=== PATIENT | male | born 1990 | race African-American/Black ===

== ENCOUNTER 2022-02-22 10:31 | Emergency (ER) | payer SELFPAY ==
[2022-02-22] MEDS ORDERED: Ibuprofen 200 MG TAB ONE (11:01)
[2022-02-22] MEDS ORDERED: Acetaminophen 500 MG TAB ONE (11:02)
== END 2022-02-22 12:25 | disposition home or self-care (01) ==
LOC: CSHERS 10:31
DX: R51.9 Headache, unspecified (principal); I48.91 Unspecified atrial fibrillation
CPT/HCPCS: 99283

== ENCOUNTER 2022-03-01 09:07 | Emergency (ER) | payer SELFPAY ==
[2022-03-01] MEDS ORDERED: Iopamidol 370 76% 100 ML VIAL ONE (09:23)
[2022-03-01] MEDS ORDERED: Aspirin Chewable 81 MG TAB ONE (09:31)
[2022-03-01] MEDS ORDERED: Nitroglycerin 2% Ointment 1 INCH/1 GM Packet ONE (09:32)
[2022-03-01 09:50] LABS: #Eosinphils 0.2 10x3/uL (0.0-0.5); #Monocytes 0.4 10x3/uL (0.0-1.1); #Neutrophils 2.4 10x3/uL (1.5-8.4); %Basophils 0.7 % (0.0-2.0); %Eosinophils 4.6 % (0.0-6.0); %Lymphocytes 30.8 % (18.0-47.0); %Monocytes 8.4 % (0.0-10.0); %Neutrophils 55.3 % (40.0-75.0); Hemoglobin 15.3 g/dL (13.5-17.5); Mean Corpuscular HGB CONC 33.3 g/dL (32.0-36.0); Mean Corpuscular Hemoglobin 30.1 pg (27.0-33.0); Mean Corpuscular Volume 90.2 fl (81.2-95.1); Platelet Count 185 10x3/uL (150-450); RBC Distribution Width 13.3 % (11.5-14.5); Red Blood Cell (RBC) Count 5.09 10x6/uL (4.32-5.72); White Blood Cell (WBC) Count 4.4 10x3/uL (3.5-10.5)
[2022-03-01 10:02] LABS: ALT (SGPT) 17 U/L (8-55); AST (SGOT) 14 U/L (5-34); Albumin 4.3 g/dL (3.5-5.0); Alkaline Phosphatase 47 U/L (40-110); Anion Gap 10 mmol/L (10-20); BUN (Urea Nitrogen) 12 mg/dL (8.9-20.6); Bilirubin, Total 0.4 mg/dL (0.2-1.2); CK (CPK) 311 U/L (30-200); Calc. Creatinine Clearance 0 mL/min (70-130); Calcium 9.3 mg/dL (7.8-10.44); Carbon Dioxide 28 mmol/L (22-29); Chloride 106 mmol/L (98-107); Globulin 2.8 g/dL (2.4-3.5); Glucose 114 mg/dL (70-105); Lipase 43 U/L (8-78); Potassium 4.1 mmol/L (3.5-5.1); Protein, Total 7.1 g/dL (6.0-8.3); Sodium 140 mmol/L (136-145)
== END 2022-03-01 11:58 | disposition home or self-care (01) ==
LOC: CSHERS 09:07
DX: R07.9 Chest pain, unspecified (principal); I48.91 Unspecified atrial fibrillation; F17.200 Nicotine dependence, unspecified, uncomplicated; Z79.899 Other long term (current) drug therapy
CPT/HCPCS: 71045; 71275; 80053; 82550; 83690; 84484; 85025; 93005; Q9967

== ENCOUNTER 2023-07-09 08:46 | Emergency (ER) | payer SELFPAY ==
[2023-07-09 09:27] LABS: Hematocrit 43.5 % (38.8-50.0); Hemoglobin 14.6 g/dL (13.5-17.5); MDiff Complete? YES; Mean Corpuscular HGB CONC 33.6 g/dL (32.0-36.0); Mean Corpuscular Hemoglobin 30.2 pg (27.0-33.0); Mean Corpuscular Volume 89.9 fl (81.2-95.1); Mean Platelet Volume 11.8 fl (7.4-10.4); Platelet Count 219 10x3/uL (150-450); RBC Distribution Width 13.4 % (11.5-14.5); Red Blood Cell (RBC) Count 4.84 10x6/uL (4.32-5.72); White Blood Cell (WBC) Count 7.2 10x3/uL (3.5-10.5)
[2023-07-09] MEDS ORDERED: Ketorolac Tromethamine 30 MG/ML VIAL ONE (09:32)
[2023-07-09 10:07] LABS: Eosinophils 6 % (0-10); Lymphocytes 35 % (21-51); Monocytes 6 % (0-10); Neutrophil 53 % (42-75)
[2023-07-09 10:08] LABS: Platelet Adequacy Comment Appears Adequate; RBC Morph Comment Within Normal Limits
[2023-07-09 10:17] LABS: ALT (SGPT) 19 U/L (8-55); AST (SGOT) 17 U/L (5-34); Albumin 4.1 g/dL (3.5-5.0); Alkaline Phosphatase 49 U/L (40-110); Anion Gap 16 mmol/L (10-20); BUN (Urea Nitrogen) 14 mg/dL (8.9-20.6); Bilirubin, Total 0.2 mg/dL (0.2-1.2); Calc. Creatinine Clearance 0 mL/min (70-130); Carbon Dioxide 24 mmol/L (22-29); Chloride 105 mmol/L (98-107); Estimated GFR 94; Globulin 2.8 g/dL (2.4-3.5); Glucose 108 mg/dL (70-105); Potassium 3.9 mmol/L (3.5-5.1); Protein, Total 6.9 g/dL (6.0-8.3); Sodium 141 mmol/L (136-145)
[2023-07-09 10:21] LABS: Troponin I Less than 0.010 ng/mL (< 0.028)
[2023-07-09 10:25] LABS: SARS-CoV-2 NAA Rapid Test Not Detected (NotDetected)
== END 2023-07-09 11:55 | disposition home or self-care (01) ==
LOC: CSHERS 08:46
DX: R00.2 Palpitations (principal); F17.200 Nicotine dependence, unspecified, uncomplicated; Z79.899 Other long term (current) drug therapy; Z20.822 Contact with and (suspected) exposure to COVID-19
CPT/HCPCS: 36415; 83735; 83880; 93005; 96360; J1885; U0002

== ENCOUNTER 2023-07-10 13:08 | Emergency (ER) | payer SELFPAY ==
[2023-07-10] MEDS ORDERED: Acetaminophen 325 MG TAB ONE (14:26)
== END 2023-07-10 14:37 | disposition home or self-care (01) ==
LOC: CSHERS 13:08
DX: R51.9 Headache, unspecified (principal); F17.210 Nicotine dependence, cigarettes, uncomplicated; J45.909 Unspecified asthma, uncomplicated; Z76.0 Encounter for issue of repeat prescription
CPT/HCPCS: 99283